=== PATIENT | female | born 1965 | race Caucasian/White ===

== ENCOUNTER 2017-02-17 01:11 | Emergency (ER) | payer BC ==
[2017-02-17 01:11] VITALS: BMI 27.4
[2017-02-17 01:39] VITALS: RESP 16
[2017-02-17 02:01] LABS: RBC URINE 5 /hpf (0-3); URINE BACTERIA RARE (<OCC); URINE BILIRUBIN NEGATIVE (NEGATIVE); URINE BLOOD NEGATIVE (NEGATIVE); URINE GLUCOSE (UA) NORMAL (Normal); URINE KETONE NEGATIVE (NEGATIVE); URINE LEUKOCYTE ESTERASE NEG Leu/uL (Negative); URINE PROTEIN NEGATIVE (NEGATIVE); WBC URINE 8 /hpf (0-5)
[2017-02-17 02:03] LABS: URINE COLOR ORANGE (YELLOW)
[2017-02-17] MEDS ORDERED: Sodium Chloride 0.9% 1,000 ML IV STA (02:35)
[2017-02-17] MEDS ORDERED: Sodium Chloride 0.9% 1,000 ML ONE (03:06)
[2017-02-17 03:33] LABS: CHLORIDE 104 mmol/L (98-107); POTASSIUM 3.7 mmol/L (3.6-5.2); SODIUM 138 mmol/L (132-148)
[2017-02-17 03:35] LABS: GFR AFRICAN-AMERICAN > 60
[2017-02-17 03:36] LABS: ALB/GLOB RATIO 1.3 (1.0-2.1); ALKALINE PHOSPHATASE 124 U/L (38-126); ALT/SGPT 32 U/L (9-52); AST/SGOT 20 U/L (14-36); BILIRUBIN,TOTAL 0.3 mg/dL (0.2-1.3); BLOOD UREA NITROGEN 22 mg/dL (7-17); CALCIUM 8.9 mg/dl (8.6-10.4); CARBON DIOXIDE 23 mmol/L (22-30); GLUCOSE,RANDOM 96 mg/dL (65-105); TOTAL PROTEIN 6.8 g/dL (6.3-8.3)
[2017-02-17 03:37] LABS: BASO # 0.1 K/uL (0.0-0.2); BASO % 0.9 % (0.0-2.0); EOS # 0.1 K/uL (0.0-0.7); EOS % 1.2 % (0.0-4.0); LYMPH # 4.4 K/uL (1.0-4.3); LYMPH % 37.1 % (20.0-40.0); MEAN CELL VOLUME 93.5 fL (81.0-99.0); MEAN CORPUSCULAR HEMOGLOBIN 31.4 pg (27.0-31.0); MEAN CORPUSCULAR HGB CONC 33.6 g/dL (33.0-37.0); MEAN PLATELET VOLUME 9.1 fL (7.2-11.7); MONO # 0.4 K/uL (0.0-0.8); MONO % 3.6 % (0.0-10.0); NRBC % 0.1 % (0.0-2.0); RED CELL DISTRIBUTION WIDTH 12.3 % (11.5-14.5)
--- NOTE | 2017-02-17 05:06 | C.PDOC ---
History Of Present Illness 52 year old female presents to the ED with complaints of left lower abdominal pain for two days. Patient states she was seen by her PMD two days ago and given prescriptions for Levaquin and Pyridium with no relief. She also notes a suprapubic pressure with urinary hesitancy. Patient states currently symptoms are similar to symptoms felt during a past kidney stone episode. She denies any hematuria, dysuria, fever, vomiting, or back pain. Time Seen by Provider: 02/17/17 01:57 Chief Complaint (Nursing): Abdominal Pain History Per: Patient History/Exam Limitations: no limitations Onset/Duration Of Symptoms: Days (2 days) Current Symptoms Are (Timing): Still Present Location Of Pain/Discomfort: RLQ, LLQ, Suprapubic Quality Of Discomfort: Pressure (suprapubic), "Pain" (lower abdominal pain) Associated Symptoms: Urinary Symptoms (urinary hesitancy). denies: Fever, Chills, Nausea, Vomiting, Diarrhea, Back Pain Recent travel outside of the [place]: No Past Medical History Reviewed: Historical Data, Nursing Documentation, Vital Signs Vital Signs: Last Vital Signs Temp 97.6 F 02/17/17 01:33 Pulse 78 02/17/17 01:33 Resp 16 02/17/17 01:33 BP 147/86 02/17/17 01:33 Pulse Ox 96 02/17/17 06:38 - Medical History PMH: Kidney Stones, Chronic Kidney Disease Surgical History: Appendectomy Family History: States: Unknown Family Hx - Social History Hx Tobacco Use: No Hx Alcohol Use: No Hx Substance Use: No - Immunization History Hx Tetanus Toxoid Vaccination: No Hx Influenza Vaccination: No Hx Pneumococcal Vaccination: No Review Of Systems Constitutional: Negative for: Fever, Chills, Sweats Gastrointestinal: Positive for: Abdominal Pain. Negative for: Nausea, Vomiting , Diarrhea Genitourinary: Negative for: Dysuria, Hematuria Musculoskeletal: Negative for: Back Pain Physical Exam - Physical Exam Appears: Non-toxic, No Acute Distress Skin: Warm, Dry Eye(s): bilateral: Normal Inspection, PERRL, EOMI Oral Mucosa: Moist Neck: Normal ROM, Supple Cardiovascular: Rhythm Regular Respiratory: Normal Breath Sounds, No Wheezing Gastrointestinal/Abdominal: Soft, Tenderness (left lower quadrant tenderness and mid-suprapubic tenderness ), No Distention, No Guarding, No Rebound Back: Normal Inspection, No CVA Tenderness Pelvic: Vaginal Discharge (whitish vaginal discharge), No Cervical Motion Tenderness, No Adnexal Tenderness Extremity: Normal ROM, No Tenderness Neurological/Psych: Oriented x3 Gait: Steady ED Course And Treatment - Laboratory Results Result Diagrams: 02/17/17 03:22 02/17/17 03:22 O2 Sat by Pulse Oximetry: 96 (room air ) Pulse Ox Interpretation: Normal - CT Scan/US CT Abdomen and Pelvis Without Intravenous Contrast Other Rad Studies (CT/US): Read By Radiologist, Radiology Report Reviewed CT/US Interpretation: FINDINGS: Lower thorax: No acute findings. No pleural effusions. ABDOMEN: Liver: Unremarkable. Gallbladder and bile ducts: Partially contracted gallbladder. No calcified stones. No ductal. dilatation. Pancreas: Unremarkable. No ductal dilatation. Spleen: Unremarkable. No splenomegaly. Adrenals: Unremarkable. No mass. Kidneys and ureters: Mild-to- moderate left hydroureteronephrosis. Small obstructing stone (3 mm. size) distally on the left side (axial image #78) --- either recently passed into the urinary bladder, or in. the intramural portion of the distal left ureter. Stomach and bowel: Unremarkable. No bowel obstruction. No mucosal thickening. Appendix: Suspect previous appendectomy (pericecal clips). No findings to suggest acute. appendicitis. PELVIS: Bladder: Unremarkable. No stones. Reproductive: Unremarkable as visualized. ABDOMEN and PELVIS: Intraperitoneal space: Unremarkable. No free air. No significant fluid collection. Bones/joints : No acute fracture nor dislocation. Soft tissues: Unremarkable. Vasculature: Unremarkable. No abdominal aortic aneurysm. Lymph nodes: Unremarkable. No enlarged lymph nodes. IMPRESSION: [id number] left hydroureteronephrosis. Small obstructing stone (3 mm size) distally on the left side --- either recently passed into the. urinary bladder, or in the intramural portion of the distal left ureter. Probable previous appendectomy. No acute bowel pathology. Progress Note: Labs and ABD CT d/w pt who reports improved pain. Pt will be d/c on flomax and motrin and advised follow u. Pt understands and does agree with plan. Return precautions also d/w pt and pt acknowledged understanding. Reevaluation Time: 06:48 Reassessment Condition: Improved Medical Decision Making Medical Decision Making: Labs performed: Abdominal and Pelvis CT scan w/o PO or IV contrast Urinalysis Disposition Counseled Patient/Family Regarding: Diagnosis, Need For Followup, Rx Given - Disposition Referrals: Charlie Dunn MD [Staff Provider] - Disposition: HOME/ ROUTINE Disposition Time: 06:50 Condition: STABLE Additional Instructions: Increase PO fluids Take meds as directed Follow up with Urologist Return to ER if worse Prescriptions: Ibuprofen [Motrin] 600 mg PO Q6H #20 tab Tamsulosin [Flomax] 0.4 mg PO DAILY #6 cap Instructions: Kidney Stones (ED) - Clinical Impression Clinical Impression: Kidney stone on left side - Scribe Statement The provider has reviewed the documentation as recorded by the Scribe Samra Rojas All medical record entries made by the Scribe were at my direction and personally dictated by me. I have reviewed the chart and agree that the record accurately reflects my personal performance of the history, physical exam, medical decision making, and the department course for this patient. I have also personally directed, reviewed, and agree with the discharge instructions and disposition.
[2017-02-17 07:04] VITALS: BP 120/75; PULSE 64; TEMP 97.7; O2SAT 98
--- NOTE | 2017-02-17 10:11 | CT ---
PROCEDURE: CT Abdomen and Pelvis without intravenous contrast HISTORY: Left abdominal and suprapubic pain, h/o kidney sto COMPARISON: None. TECHNIQUE: Without contrast.. Contrast Dose: 0 Radiation dose: Total exam DLP = 674.73 mGy-cm. This CT exam was performed using one or more of the following dose reduction techniques: Automated exposure control, adjustment of the mA and/or kV according to patient size, and/or use of iterative reconstruction technique. FINDINGS: LOWER THORAX: Unremarkable. LIVER: Mild hepatomegaly. The liver measures approximately 20.3 cm craniocaudal. No mass. Smooth contour. No biliary dilatation. GALLBLADDER AND BILE DUCTS: Unremarkable. PANCREAS: Unremarkable. No gross lesion or ductal dilatation. SPLEEN: Unremarkable. ADRENALS: Unremarkable. No mass. KIDNEYS AND URETERS: Minimal left hydroureteronephrosis. 5-6 mm calculus either resting at left bladder base or at left ureteral orifice. No renal calculus. No right hydronephrosis. No renal mass. VASCULATURE: Unremarkable. No aortic aneurysm. BOWEL: Mild sigmoid diverticulosis without evidence of diverticulitis. No bowel obstruction. No other abnormal bowel loops. APPENDIX: Apparently status post appendectomy, with high attenuation surgical material at cecal apex. PERITONEUM: Unremarkable. No free fluid. No free air. LYMPH NODES: Unremarkable. No enlarged lymph nodes. BLADDER: Unremarkable. REPRODUCTIVE: Normal uterus BONES: No acute fracture. OTHER FINDINGS: None. IMPRESSION: 5-6 mm calculus either resting at left bladder base or at the left ureteral orifice with minimal left hydroureteronephrosis. No other acute abnormality. Mild hepatomegaly, nonspecific. Sigmoid diverticulosis without evidence of diverticulitis. Preliminary interpretation of this examination was reported by [employer] at 6:36 a.m. on 02/17/2017. There is concurrence of this report with the preliminary interpretation.
== END 2017-02-17 07:03 | disposition home or self-care (01) ==
LOC: C.ER 01:11
DX: N13.2 Hydronephrosis with renal and ureteral calculous obstruction (principal)
CPT/HCPCS: 74176; 80053; 81001; 85025; 99284; J7040

== ENCOUNTER 2018-06-03 10:23 | Emergency (ER) | payer BC ==
[2018-06-03 10:23] VITALS: BMI 27.4
[2018-06-03 10:31] VITALS: RESP 16; TEMP 98.1; O2SAT 98
[2018-06-03] MEDS ORDERED: Bacitracin 500 Units/gm Oint Foilpak UD ONE (10:49)
[2018-06-03] MEDS ORDERED: Tdap Vaccine 0.5 ml Vial (10-64 yrs) IM ONE ×2 (12:18→12:24)
--- NOTE | 2018-06-03 13:15 | C.PDOC ---
History Of Present Illness 53 yo female c/o right knee and left hand pain s/p fall just prior to arrival. Pt notes she was walking on the street, tripped and fell on the sidewalk bracing her fall with her hands and knees. Also c/o lower back pain though did not fall on to her back. Denies head trauma, chest pain, n/v, abdominal pain, change in sensation, or weakness. Left hand dominant. Time Seen by Provider: 06/03/18 11:46 Chief Complaint (Nursing): Back Pain History Per: Patient History/Exam Limitations: no limitations Onset/Duration Of Symptoms: Mins Current Symptoms Are (Timing): Still Present Associated Symptoms: denies: Incontinence, New Weakness, New Numbness Exacerbating Factor(s): Movement Past Medical History Vital Signs: Last Vital Signs Temp 98.1 F 06/03/18 10:25 Pulse 59 L 06/03/18 10:25 Resp 16 06/03/18 10:25 BP 138/86 06/03/18 10:25 Pulse Ox 98 06/03/18 10:25 - Medical History PMH: Kidney Stones, Chronic Kidney Disease Surgical History: Appendectomy Family History: States: Unknown Family Hx - Social History Hx Tobacco Use: No Hx Alcohol Use: No Hx Substance Use: No - Immunization History Hx Tetanus Toxoid Vaccination: No Hx Influenza Vaccination: No Hx Pneumococcal Vaccination: No Review Of Systems Except As Marked, All Systems Reviewed And Found Negative. Musculoskeletal: Positive for: Back Pain, Hand Pain Physical Exam - Physical Exam Appears: Well, Non-toxic, No Acute Distress Skin: Warm, Dry, Other ((+) superficial abrasion to the the right anterior knee and the left palm) Head: Atraumatic, Normacephalic Eye(s): bilateral: Normal Inspection, EOMI Nose: Normal Oral Mucosa: Moist Neck: Normal, Normal ROM, Supple Chest: Symmetrical Cardiovascular: Rhythm Regular Respiratory: Normal Breath Sounds, No Accessory Muscle Use Gastrointestinal/Abdominal: Normal Exam, Soft, No Tenderness Back: No CVA Tenderness, No Vertebral Tenderness, Paraspinal Tenderness ((+) lower paralumbar tenderness) Extremity: Normal ROM, Tenderness (left 5th finger and diffusely at the right knee), Capillary Refill (<2 sec), No Swelling Extremity: Bilateral: Normal Color And Temperature Pulses: Left Radial: Normal, Right Radial: Normal, Left Dorsalis Pedis: Normal, Right Dorsalis Pedis: Normal Neurological/Psych: Oriented x3, Normal Speech, Normal Sensation ED Course And Treatment O2 Sat by Pulse Oximetry: 98 - Other Rad l/s XR X-Ray: Interpreted by Me, Viewed By Me, Read By Radiologist Interpretation: Accession No. : [id number]. Patient Name / ID : KAYLI BUNN / [id number]. Exam Date : 06/03/2018 12:31:50 ( Approved ). Study Comment : Sex / Age : F / 53Y. Creator : Raina Bernard V. Dictator : Raina Bernard V. Brooch Maker Novelty : Floral Assistant : Raina Bernard V. Approver2 : Report Date : 06/03/2018 13:20:41. My Comment : . Date of service: 06/03/2018. PROCEDURE: Radiographs of the Lumbar Spine. HISTORY: trauma. COMPARISON: No prior. FINDINGS: BONES: Normal alignment. No listhesis. No fracture. Diffuse lumbar spondylosis most pronounced at the L3-4 and L4-5 levels. DISC SPACES: Unremarkable. OTHER FINDINGS: Atherosclerotic vascular calcifications present. IMPRESSION: No fracture or listhesis appreciated. Lumbar spondylosis Knee XR X-Ray: Interpreted by Me, Viewed By Me, Read By Radiologist Interpretation: Accession No. : [id number]. Patient Name / ID : KAYLI BUNN / [id number]. Exam Date : 06/03/2018 12:28:12 ( Approved ). Study Comment : Sex / Age : F / 53Y. Creator : Raina Bernard V. Dictator : Raina Bernard V. Brooch Maker Novelty : Floral Assistant : Raina Bernard V. Approver2 : Report Date : 06/03/2018 13:22:07. My Comment : . Date of service: 06/03/2018. PROCEDURE: Right Knee Radiographs. HISTORY: trauma. COMPARISON: None. FINDINGS: BONES: No fracture. JOINTS: osteoarthritis. JOINT EFFUSION: None. OTHER FINDINGS: Anterior distal thigh subcutaneous phleboliths. Few Atherosclerotic vascular calcifications present. IMPRESSION: No fracture or dislocation. Mild osteoarthrosis LEft 5th finger X-Ray: Interpreted by Me, Viewed By Me Interpretation: no fx or dislocation Progress Note: Wounds were cleansed and dressed by RN. Knee brace and finger spint applied by systems protection technician. Instructed RICE and followup with your doctor in1 -2 days. Disposition - Disposition Referrals: Sarah Caruso MD [Staff Provider] - Disposition: HOME/ ROUTINE Disposition Time: 13:14 Condition: STABLE Additional Instructions: Rest, ice and elevate the area. Follow up with your doctor in 1-2 days. Instructions: Contusion (DC) Forms: [facility] (Kyrgyz), Work Excuse - Clinical Impression Clinical Impression: Knee abrasion, Finger contusion, Low back strain
--- NOTE | 2018-06-03 13:22 | RAD ---
Date of service: 06/03/2018 PROCEDURE: Radiographs of the Lumbar Spine. HISTORY: trauma COMPARISON: No prior. FINDINGS: BONES: Normal alignment. No listhesis. No fracture. Diffuse lumbar spondylosis most pronounced at the L3-4 and L4-5 levels DISC SPACES: Unremarkable. OTHER FINDINGS: Atherosclerotic vascular calcifications present. IMPRESSION: No fracture or listhesis appreciated Lumbar spondylosis
--- NOTE | 2018-06-03 13:25 | RAD ---
Date of service: 06/03/2018 PROCEDURE: Right Knee Radiographs. HISTORY: trauma COMPARISON: None. FINDINGS: BONES: No fracture. JOINTS: osteoarthritis. JOINT EFFUSION: None. OTHER FINDINGS: Anterior distal thigh subcutaneous phleboliths. Few Atherosclerotic vascular calcifications present. IMPRESSION: No fracture or dislocation. Mild osteoarthrosis
--- NOTE | 2018-06-03 13:27 | RAD ---
Date of service: 06/03/2018 PROCEDURE: Left small finger radiographs. HISTORY: trauma COMPARISON: None. TECHNIQUE: AP radiograph of the left hand, as well as spot oblique and lateral images of left small finger were obtained. FINDINGS: LEFT SMALL FINGER: Left small finger normal, without fracture of focal lesion. Remainder of the left hand (as seen on the AP view) is grossly unremarkable. JOINTS: Diffuse proximal and distal 2nd through 5th interphalangeal joint space narrowing. SOFT TISSUES: Normal. OTHER FINDINGS: None. IMPRESSION: No fracture or dislocation. Diffuse interphalangeal degenerative type joint-space narrowing. No erosions seen
[2018-06-03 13:28] VITALS: BP 129/85; PULSE 73
== END 2018-06-03 13:26 | disposition home or self-care (01) ==
LOC: C.ER 10:23
DX: S60.052A Contusion of left little finger without damage to nail, initial encounter (principal); S39.012A Strain of muscle, fascia and tendon of lower back, initial encounter; S80.211A Abrasion, right knee, initial encounter; W01.0XXA Fall on same level from slipping, tripping and stumbling without subsequent striking against object, initial encounter; Y93.01 Activity, walking, marching and hiking; Y92.480 Sidewalk as the place of occurrence of the external cause